=== PATIENT | male | born 1965 | race African-American/Black ===

== ENCOUNTER 2017-12-05 02:23 | Emergency (ER) | payer BC, OTHER ==
[~2017-12-05 02:23] MED LIST: METO25 PO; RIVA15TA PO
[2017-12-05] MEDS ORDERED: KETOROLAC TROMETHAMINE 30MG/ML ONE (02:43)
[2017-12-05] MEDS ORDERED: CYCLOBENZAPRINE HCL 10 MG TABLET ONE (02:44)
== END 2017-12-05 03:32 | disposition home or self-care (01) ==
LOC: EDH 02:23
DX: M62.838 Other muscle spasm (principal); I10 Essential (primary) hypertension; G51.0 Bell's palsy
CPT/HCPCS: 96372; 99283; J1885